=== PATIENT | female | born 1985 ===

== ENCOUNTER → 2020-01-21 12:44 | Outpatient (CLI) | payer MEDICAID, SELFPAY ==
[2020-01-21 13:43] LABS: HCG Quantitative /Beta subunit 716.4 mIU/mL
== END ==
PROVIDERS: Family Provider Nurse Practitioner; PCP Family Medicine; Referring Provider Obstetrics & Gynecology; Visit Provider Obstetrics & Gynecology
DX: O36.80X0 Pregnancy with inconclusive fetal viability, not applicable or unspecified (principal)
CPT/HCPCS: 36415; 84702

== ENCOUNTER → 2020-01-24 13:58 | Outpatient (CLI) | payer MEDICAID, SELFPAY ==
[2020-01-24 17:26] LABS: HCG Quantitative /Beta subunit 1311.1 mIU/mL
== END ==
PROVIDERS: Family Provider Nurse Practitioner; PCP Family Medicine; Referring Provider Obstetrics & Gynecology; Visit Provider Obstetrics & Gynecology
DX: O36.80X0 Pregnancy with inconclusive fetal viability, not applicable or unspecified (principal)
CPT/HCPCS: 36415; 84702

== ENCOUNTER → 2020-01-31 14:03 | Outpatient (CLI) | payer MEDICAID, SELFPAY ==
--- NOTE | 2020-01-31 14:05 | DI.US.S_ITS ---
PROCEDURE: US OB <= 14 WEEKS FETUS INDICATIONS: VIABILITY CHECK OUTSIDE/PRIOR DATING DATA: Last menstrual period (LMP): 12/10/19. LMP-based estimated date of delivery (JACKSON): 09/15/20. First dating scan (date and location): This study. Estimated date of delivery (JACKSON) from first dating scan: A viable intrauterine gestation is not yet visualized.. TECHNIQUE: Real-time scanning was performed of the fetus and maternal pelvic organs, with image documentation. Endovaginal scanning was also performed to better visualize the fetus and maternal ovaries. COMPARISON: [facility] [place], , OB <= 14 WEEKS FETUS, 01/28/2020, 14:48. [facility] [place], , OB <= 14 WEEKS FETUS, 01/21/2020, 12:33. FINDINGS: Embryo: Not seen but there is a sac like structure measuring up to 8 mm which would correlate with a gestational age of 5 weeks 4 days by size. However, an earlier ultrasound 01/21/20 would project a current gestational age of 7 weeks 3 days and the absence of a visualized pole or yolk sac argues towards demise and retained products of conception. Measurement variability in dating: +/- 4 weeks by LMP, +/- 7 days by mean sac diameter (use before 6 weeks gestation if crown-rump length not able to be measured), +/- 5 days by crown-rump length (up to 8 weeks 6 days gestation), +/- 7 days by crown-rump length (up to 13 weeks 6 days gestation). Maternal organs: Ovaries appear normal except for a 1.8 x 1.4 cm mildly complex left ovarian cyst, likely containing hemorrhagic or proteinaceous content. Limited images through the kidneys demonstrate no hydronephrosis. IMPRESSION: The prior ultrasound studies have indicated presence of an intrauterine gestation but the estimated current gestational age by mean sac diameter is approximately 2 weeks delayed from expected based on earlier OB ultrasound. No pole, no yolk sac. Probable demise with retained products of conception. Please correlate with quantitative beta hCG. Incidental note made of a mildly complex left ovarian cyst measuring only 1.8 cm in diameter. Dictated by: Levon Garza M.D. on 01/31/2020 at 15:42 Approved by: Levon Garza M.D. on 01/31/2020 at 15:46
== END ==
PROVIDERS: Family Provider Nurse Practitioner; PCP Family Medicine; Referring Provider Obstetrics & Gynecology; Visit Provider Obstetrics & Gynecology
DX: O36.80X0 Pregnancy with inconclusive fetal viability, not applicable or unspecified (principal); N83.292 Other ovarian cyst, left side
CPT/HCPCS: 76801; 76817

== ENCOUNTER 2020-03-20 23:59 | Emergency (ER) | payer MEDICAID, SELFPAY ==
[2020-03-21] VITALS (8 sets, daily range): BP systolic 110–167; BP diastolic 65–107; PULSE 61–80; RESP 18; TEMP 37.1; O2SAT 96–100; BMI 28.6
[2020-03-21 00:20] LABS: Bacteria Urine None Seen; WBC Urine None Seen (0-5/HPF)
--- NOTE | 2020-03-21 00:20 | ED_ITS ---
HPI - General Chief complaint: Vaginal Bleeding Stated complaint: miscarried 1 mo ago, now hemorrhaging Time Seen by Provider: 03/21/20 00:20 Source: patient Mode of arrival: Ambulatory Limitations: no limitations History of Present Illness HPI Narrative: The patient is , she underwent a miscarriage last month that was diagnosed as a blighted ovum. She followed up with heard software licensing specialist, she was tract with labs and ultrasound to assure there was completion of the miscarriage. She stopped bleeding about 1 week ago after 3 weeks of bleeding. She developed heavy bleeding with large clots today. She has no nausea, vomiting diarrhea. She denies any significant cramping at this time. She descr ibes mild dizziness when up and about. Her blood type is O-positive. She has no obvious COVID-19 exposure. She denies fever, sore throat or cough.. Patient : No Related Data Home Medications Medication Instructions Recorded Confirmed prenat.vits,justin,[id number] 1 tab PO DAILY 01/19/20 03/06/20 albuterol sulfate 90 mcg/actuation 1 inhalation INHALATION Q4-6H PRN 01/21/20 03/06/20 breath activated powder inhaler Allergies Allergy/AdvReac Type Severity Reaction Status Date / Time hydromorphone [HYDROMORPHONE] Allergy Severe FROM Unverified 02/11/20 07:54 DILAUDID/THROAT SWELLING codeine [CODEINE] Allergy Intermediate ITCHING Unverified 02/11/20 07:54 oxycodone [From PERCOCET] Allergy Unknown ITCHING Unverified 02/11/20 07:54 Review of Systems Review of Systems ROS Unobtainable: All systems reviewed & are unremarkable except as noted in HPI and below Constitutional Constitutional: Denies chills, Denies fever(s), Denies lethargy and Denies weakness ENT Ears, Nose, Mouth, and Throat: Denies vertigo, Reports dizziness and Denies sore throat Gastrointestinal Gastrointestinal: Denies abdominal pain, Denies change in bowel habits, Denies diarrhea, Denies nausea and Denies vomiting Genitourinary Comments: Heavy bleeding as described in HPI. Musculoskeletal Musculoskeletal: Denies back pain Integumentary/Breasts Skin/Breast: Denies rash Neurologic Neurologic: Denies confusion, Denies vertigo, Reports dizziness and Denies weakness Psychiatric Psychiatric: Denies confusion PMFSH - Past Medical History Medical history: Reports asthma Additional medical history: PUD Surgical history: Reports no surgical history HEMODIALYSIS RN history: Reports Spontaneous Patient : No Family History Family history: Reports no significant family history Exam Initial Vital Signs Initial Vital Signs: Vital Signs Temperature 98.7 F 03/21/20 00:09 Pulse Rate 69 03/21/20 00:09 Respiratory Rate 18 03/21/20 00:09 Blood Pressure 167/107 H 03/21/20 00:09 Pulse Oximetry 100 03/21/20 00:09 Const General: cooperative and well developed Nutritional Appearance: well nourished Resp Effort & Inspection: normal respiratory effort and able to speak in complete sentences Auscultation: clear to auscultation bilaterally, no rales, no rhonchi and no wheezes Cardio Rate: regular rate Rhythm: regular rhythm Heart Sounds: S1 normal, S2 normal, no click, no gallops, no murmurs and no rubs Pulses: normal peripheral pulses GI Inspection: non-distended Palpation: soft, no hepatosplenomegaly and No tender Auscultation: normal bowel sounds Back/Spine/Pelvis Back: No CVA tenderness Thoracic/Lumbar Spine: thoracic and lumbar spine normal to inspection Skin General: no rashes or lesions noted and No petechiae Neuro General: patient alert, patient oriented x3, gait normal and no focal motor deficits Speech: speech normal Extrem General: no calf tenderness Course Orders Ordered: ED Orders 03/21/20 00:11 Urinalysis and Microscopic Stat 03/21/20 00:20 ABO RH Type Stat Basic Metabolic Panel Stat Complete Blood Count AUTO DIFF Stat HCG Quantitative /Beta subunit Stat Prothrombin Time INR Stat Vital Signs Vital signs: Vital Signs - 8 hr 03/21/20 00:09 03/21/20 00:46 03/21/20 01:00 Temperature 98.7 F Pulse Rate 69 64 61 Respiratory Rate 18 Blood Pressure 167/107 H 121/78 Pulse Oximetry 100 96 96 03/21/20 01:30 03/21/20 01:56 Temperature Pulse Rate 64 66 Respiratory Rate Blood Pressure 117/82 118/83 Pulse Oximetry 96 99 MDM - OB/Uterine Contractions Medical Records Medical records narrative: Her patient had been clinically stable throughout the ER stay. Her H/H are stable. HcG testing shows her to be not . She is advised follow-up with her software licensing specialist. Lab Data Result diagrams: 03/21/20 00:20 03/21/20 00:20 Labs: Lab Results 03/21/20 03/21/20 03/21/20 Range/Units 00:11 00:20 00:20 WBC 7.9 (4.5-11.0) X10^3/uL RBC 4.69 (4.0-5.2) X10^6/uL Hgb 13.7 (12.0-16.0) g/dL Hct 41.6 (36-46) % MCV 88.6 (80-100) fL MCH 29.3 (26-34) PG MCHC 33.1 (30-36) % RDW 12.3 (11.6-14.8) % Plt Count 304 (150-400) X10^3/uL Neut % (Auto) 47.3 L (50-75) % Lymph % (Auto) 43.1 H (25-40) % [place] % (Auto) 7.6 (3-14) % Eos % (Auto) 1.6 L (2-4) % Baso % (Auto) 0.4 (0-2) % Neut # (Auto) 3700 (1763-7917) /uL Lymph # (Auto) 3400 (0745-6719) /uL [place] # (Auto) 600 (0-900) /uL Eos # (Auto) 100 (0-450) /uL Baso # (Auto) 0 (0-100) /uL PT 11.2 (10.1-12.7) SECONDS INR 1.0 (0.9-1.3) Sodium (137-145) mmol/L Potassium (3.4-5.1) mmol/L Chloride (98-107) mmol/L Carbon Dioxide (22-32) mmol/L BUN (7-17) mg/dL Creatinine (0.52-1.04) mg/dL Estimated GFR (>60) mL/min BUN/Creatinine Ratio (6-22) Glucose (70-100) mg/dL Calcium (8.4-10.2) mg/dL HCG, Quant mIU/mL Urine Color Yellow Urine Appearance Clear Urine pH 5.5 (4.5-8.0) Ur Specific [place] 1.015 (1.000-1.035) Urine Protein Negative (Negative) Urine Glucose (UA) Negative (Negative) g/dL Urine Ketones Negative (NEGATIVE) Urine Occult Blood 3+ H (Negative) Urine Nitrate Negative (Negative) Urine Bilirubin Negative (NEGATIVE) Urine Urobilinogen 0.2 (0.2) E.U./dL Ur Leukocyte Esterase Negative (NEGATIVE) Urine RBC 1-5/hpf (0-5/HPF) Urine WBC None seen (0-5/HPF) Ur Squamous Epith Cells 0-1 /hpf (0-5/HPF) Urine Bacteria None seen (None) Ur Culture Indicated? Cult not indicated Blood Type 03/21/20 03/21/20 Range/Units 00:20 00:20 WBC (4.5-11.0) X10^3/uL RBC (4.0-5.2) X10^6/uL Hgb (12.0-16.0) g/dL Hct (36-46) % MCV (80-100) fL MCH (26-34) PG MCHC (30-36) % RDW (11.6-14.8) % Plt Count (150-400) X10^3/uL Neut % (Auto) (50-75) % Lymph % (Auto) (25-40) % [place] % (Auto) (3-14) % Eos % (Auto) (2-4) % Baso % (Auto) (0-2) % Neut # (Auto) (6071-8709) /uL Lymph # (Auto) (0523-1947) /uL [place] # (Auto) (0-900) /uL Eos # (Auto) (0-450) /uL Baso # (Auto) (0-100) /uL PT (10.1-12.7) SECONDS INR (0.9-1.3) Sodium 138 (137-145) mmol/L Potassium 3.8 (3.4-5.1) mmol/L Chloride 104 (98-107) mmol/L Carbon Dioxide 25 (22-32) mmol/L BUN 11 (7-17) mg/dL Creatinine 0.66 (0.52-1.04) mg/dL Estimated GFR > 60.0 (>60) mL/min BUN/Creatinine Ratio 16.7 (6-22) Glucose 84 (70-100) mg/dL Calcium 9.7 (8.4-10.2) mg/dL HCG, Quant < 2.4 mIU/mL Urine Color Urine Appearance Urine pH (4.5-8.0) Ur Specific [place] (1.000-1.035) Urine Protein (Negative) Urine Glucose (UA) (Negative) g/dL Urine Ketones (NEGATIVE) Urine Occult Blood (Negative) Urine Nitrate (Negative) Urine Bilirubin (NEGATIVE) Urine Urobilinogen (0.2) E.U./dL Ur Leukocyte Esterase (NEGATIVE) Urine RBC (0-5/HPF) Urine WBC (0-5/HPF) Ur Squamous Epith Cells (0-5/HPF) Urine Bacteria (None) Ur Culture Indicated? Blood Type O Positive Discharge Plan Departure Patient Disposition: Home Clinical Impression: Menorrhagia Qualifiers: Menorrhagia type: with onset of menstrual periods Qualified Code(s): N92.2 - Excessive menstruation at puberty Instructions: DI for Menorrhagia Activity Restrictions/Additional Instructions: Contact your software licensing specialist tomorrow if symptoms are not improving. Follow-up with your doctor as planned. Return here if you have continuation without improvement of current symptoms. Prescriptions: No Action prenat.vits,justin,[id number] Tablet 1 tab PO DAILY RF: 0 albuterol sulfate 90 mcg/actuation aerosol powdr breath activated 1 inhalation INHALATION Q4-6H PRNRF: 0 Referrals: Cb Bunn MD [Primary Care Provider] -
[2020-03-21 00:21] LABS: Appearance Urine UA CLEAR; Bilirubin Urine UA NEGATIVE (NEGATIVE); Color Urine UA YELLOW; Glucose Urine UA NEGATIVE (Negative); Ketones Urine UA NEGATIVE (NEGATIVE); Leukocyte Esterase Urine UA NEGATIVE (NEGATIVE); Nitrite Urine UA NEGATIVE (Negative); Occult Blood Urine UA 3+ (Negative); Protein Urine UA NEGATIVE (Negative); Specific Gravity Urine UA 1.015 (1.000-1.035); Urobilinogen Urine UA 0.2 E.U./dL (0.2)
[2020-03-21 00:24] LABS: pH Urine UA 5.5 (4.5-8.0)
[2020-03-21 00:36] LABS: Prothrombin Time 11.2 SECONDS (10.1-12.7)
[2020-03-21 00:41] LABS: BUN Creatinine Ratio 16.7 (6-22); Blood Urea Nitrogen 11 mg/dL (7-17); Calcium 9.7 mg/dL (8.4-10.2); Carbon Dioxide 25 mmol/L (22-32); Chloride 104 mmol/L (98-107); Estimated Glomerular Filt Rate > 60.0 mL/min (>60); Glucose 84 mg/dL (70-100); HEMOLYSIS < 15 (0-50); Potassium 3.8 mmol/L (3.4-5.1); Sodium 138 mmol/L (137-145)
[2020-03-21 00:43] LABS: Add Manual Diff / Slide Review NO; Basophils Absolute Auto 0 /uL (0-100); Basophils Percent Auto 0.4 % (0-2); Eosinophils Absolute Auto 100 /uL (0-450); Eosinophils Percent Auto 1.6 % (2-4); Hematocrit 41.6 % (36-46); Hemoglobin 13.7 g/dL (12.0-16.0); Lymphocytes Absolute Auto 3400 /uL (1100-4500); Lymphocytes Percent Auto 43.1 % (25-40); Mean Corpuscular HGB Conc 33.1 % (30-36); Mean Corpuscular Hemoglobin 29.3 PG (26-34); Mean Corpuscular Volume 88.6 fL (80-100); Monocytes Absolute Auto 600 /uL (0-900); Monocytes Percent Auto 7.6 % (3-14); Neutrophils Absolute Auto 3700 /uL (1500-7000); Neutrophils Percent Auto 47.3 % (50-75); Platelet Count 304 X10^3/uL (150-400); Red Blood Cell Count 4.69 X10^6/uL (4.0-5.2); Red Cell Distribution Width 12.3 % (11.6-14.8); White Blood Cell Count 7.9 X10^3/uL (4.5-11.0)
[2020-03-21 00:53] LABS: RBC Urine 1-5/HPF (0-5/HPF); Squamous Epithelial Cell Urine 0-1 /HPF (0-5/HPF)
[2020-03-21 00:54] LABS: Culture Indicated Urine Cult Not Indicated
[2020-03-21 00:59] LABS: HCG Quantitative /Beta subunit < 2.4 mIU/mL
== END 2020-03-21 02:55 | disposition home or self-care (01) ==
PROVIDERS: Emergency Provider Emergency Medicine; Family Provider Nurse Practitioner; PCP Family Medicine
DX: N92.0 Excessive and frequent menstruation with regular cycle (principal); R42 Dizziness and giddiness
CPT/HCPCS: 36415; 80048; 81001; 84702; 85025; 85610; 86900; 86901; 99283; 99284

== ENCOUNTER → 2020-04-03 13:31 | Outpatient (CLI) | payer MEDICAID, SELFPAY ==
--- NOTE | 2020-04-03 13:32 | DI.MRI.S_ITS ---
PROCEDURE: MR ABDOME PELVIS WWO CON INDICATIONS: concern for bicornuate uterus ultrasound TECHNIQUE: Coronal HASTE, sagittal breath-hold T2 FSE; axial 2-D FLASH in- and [id number], axial T1 FSE with fat saturation through the pelvis. Optional long- and short-axis uterine nonbreath-hold T2 FSE through the uterus. Sagittal or axial dynamic VIBE during IV gadolinium administration; postgadolinium axial and sagittal VIBE/2-D FLASH with fat saturation from the iliac crests to the symphysis. COMPARISON: [facility], US, US PELVIC COMPLETE, 03/06/2020, 10:48. FINDINGS: Image quality: Excellent. Uterus: Mild arcuate morphology to the uterine fundus at the endometrial lining margin. There is no evidence of bicornuate uterus. Adnexa: No adnexal pathology identified. Urinary system: No mullerian anomaly is found, normal appearance of the kidneys and ureters. Abdomen: No lesion seen. Bones and soft tissues: No abnormality found. IMPRESSION: The endometrial lining morphology of the uterine fundus is arcuate but there is no evidence of bicornuate uterus. No renal anomaly found, normal-appearing adnexal and other pelvic structures. Dictated by: Levon Garza M.D. on 04/03/2020 at 16:44 Approved by: Levon Garza M.D. on 04/03/2020 at 16:50
== END ==
PROVIDERS: Family Provider Nurse Practitioner; PCP Family Medicine; Referring Provider Obstetrics & Gynecology; Visit Provider Obstetrics & Gynecology
DX: Q51.3 Bicornate uterus (principal)
CPT/HCPCS: 72197; A9579

== ENCOUNTER → 2020-04-10 14:32 | Outpatient (CLI) | payer MEDICAID, SELFPAY ==
[2020-04-10 15:13] LABS: Add Manual Diff / Slide Review NO; Basophils Absolute Auto 0 /uL (0-100); Basophils Percent Auto 0.5 % (0-2); Eosinophils Absolute Auto 100 /uL (0-450); Hematocrit 42.6 % (36-46); Hemoglobin 14.3 g/dL (12.0-16.0); Lymphocytes Absolute Auto 2200 /uL (1100-4500); Lymphocytes Percent Auto 35.9 % (25-40); Mean Corpuscular HGB Conc 33.5 % (30-36); Mean Corpuscular Hemoglobin 29.5 PG (26-34); Mean Corpuscular Volume 88.2 fL (80-100); Monocytes Absolute Auto 500 /uL (0-900); Monocytes Percent Auto 8.7 % (3-14); Neutrophils Absolute Auto 3300 /uL (1500-7000); Neutrophils Percent Auto 52.9 % (50-75); Platelet Count 315 X10^3/uL (150-400); Red Blood Cell Count 4.83 X10^6/uL (4.0-5.2); White Blood Cell Count 6.2 X10^3/uL (4.5-11.0)
[2020-04-10 16:53] LABS: HCG Quantitative /Beta subunit < 2.4 mIU/mL
== END ==
PROVIDERS: Family Provider Nurse Practitioner; PCP Family Medicine; Referring Provider Obstetrics & Gynecology; Visit Provider Obstetrics & Gynecology
DX: N93.9 Abnormal uterine and vaginal bleeding, unspecified (principal)
CPT/HCPCS: 36415; 84702; 85025